=== PATIENT | female | born 2000 | race Asian ===

== ENCOUNTER 2018-05-31 02:06 | Emergency (ER) | payer OTHER ==
[2018-05-31 02:45] LABS: ABS Basophils 0 10^3/ul (0-0.2); ABS Eosinophils 0 10^3/ul (0-0.6); ABS Lymphocytes 2.3 10^3/ul (1.0-4.8); ABS Monocytes 0.3 10^3/ul (0-0.8); ABS Neutrophils 3.1 10^3/ul (1.5-7.7); ABS Nucleated RBC 0 10^3/ul; Eosinophil % 0.6 % (0-6); Hematocrit 40 % (35-47); Hemoglobin 13.8 g/dl (12.0-16.0); Mean Corpuscular HGB Conc 34 g/dl (31-36); Mean Corpuscular Hemoglobin 32 pg (27-31); Mean Corpuscular Volume 92 fL (80-97); Mean Platelet Volume 7.1 um3 (7.4-10.4); Nucleated Red Blood Cells % 0.1; Platelet Count 249 10^3/ul (150-450); Red Blood Count 4.36 10^6/ul (4.00-5.40); Red Cell Distribution Width 13 % (10.5-15); White Blood Count 5.7 10^3/ul (3.5-10.8)
--- NOTE | 2018-05-31 02:45 | ED ---
Laceration/Wound HPI - HPI Summary HPI Summary: 17 year old F BIB EMS to [facility] complains of laceration to the left cheek s/p falling down an entire flight of stairs at [employer] two hours ago. The patient rates the pain 4/10 in severity. Symptoms aggravated by nothing. Symptoms alleviated by nothing. Patient reports left cheek edema, left cheek ecchymosis. She additionally complains of lacerations on her right lower extremity. Patient denies abdominal pain. Nurse reports that patient has been feeling depressed about home situation with parents. She admits that she consumed ETOH tonight to cope with the depression, but denies purposely throwing herself down the stairs. - History of Current Complaint Stated Complaint: FALL/FACIAL INJURY Time Seen by Provider: 05/31/18 02:24 Hx Obtained From: Patient Onset/Duration: Other - falling down an entire flight of stairs at [employer] Aggravating: Nothing Alleviating: Nothing Current Severity: Moderate Pain Intensity: 4 Pain Scale Used: 0-10 Numeric - Allergy/Home Medications Allergies/Adverse Reactions: Allergies Allergy/AdvReac Type Severity Reaction Status Date / Time No Known Allergies Allergy Verified 05/31/18 08:16 Home Medications: Home Medications NK [No Home Medications Reported] 05/31/18 [History Confirmed 05/31/18] PMH/Surg Hx/FS Hx/Imm Hx Previously Healthy: No Endocrine/Hematology History: Denies: Hx Diabetes Cardiovascular History: Denies: Hx Hypertension Psychiatric History: Reports: Hx Depression Infectious Disease History: No Infectious Disease History: Denies: Traveled Outside the [place] in Last 30 Days - Family History Known Family History: Positive: Other - younger sister has had thoughts of suicide - Social History Alcohol Use: Occasionally Review of Systems Positive: Edema - left cheek Positive: Other - laceration to the left cheek,lacerations on her right lower extremity, left cheek ecchymosis Positive: Other - ETOH consumption All Other Systems Reviewed And Are Negative: Yes Physical Exam - Summary Physical Exam Summary: Appearance: Well-appearing, Well-nourished, lying in bed comfortably Skin: Contusions along the right [place]: Big swelling contusion on left cheek. No extraocular muscular entrapment. No injury to the globe. Eyes: sclera anicteric, no conjunctival pallor ENT: mucous membranes moist, pharynx appears normal Neck: Supple, nontender Respiratory: Clear to auscultation, no signs of respiratory distress Cardiovascular: Normal S1, S2. No murmurs. Normal distal pulses in tibial and radial bilaterally. Abdomen: Soft, nontender, normal active bowel sounds present Musculoskeletal: Normal, Strength/ROM Intact Neurological: A&Ox3, awake and alert, mentation is normal, speech is fluent and appropriate Psychiatric: affect is normal, does not appear anxious or depressed Triage Information Reviewed: Yes Vital Signs On Initial Exam: Initial Vitals Temp Pulse Resp BP Pulse Ox 98.4 F 93 15 118/80 97 05/31/18 02:19 05/31/18 02:19 05/31/18 02:19 05/31/18 02:19 05/31/18 02:19 Vital Signs Reviewed: Yes Diagnostics - Vital Signs Vital Signs Temp Pulse Resp BP Pulse Ox 05/31/18 02:19 98.4 F 93 15 118/80 97 - Laboratory Result Diagrams: 05/31/18 02:39 05/31/18 02:39 Lab Statement: Any lab studies that have been ordered have been reviewed, and results considered in the medical decision making process. - CT Maxillofacial CT Interpretation Completed By: Radiologist - No acute fracture or dislocation. Moderate left premaxillary soft tissue swelling. ED physician has reviewed this report. Laceration Repair Course/Dx - Course Course Of Treatment: 17-year-old woman who became intoxicated and supposedly fell down a flight of stairs, injuring her left cheek. CT scan maxillofacial is negative for any facial fracture. However she is quite depressed and will need a mental health evaluation once she is sober. - Clinical Impression Provider Diagnoses: Depression Discharge - Sign-Out/Discharge Documenting (check all that apply): Sign-Out Patient Signing out patient TO: Abdias Weathers - Awaiting MHE, pending dispo - Discharge Plan Condition: Stable Disposition: HOME Referrals: No Primary Care Phys,NOPCP [Primary Care Provider] - [facility] [Outside] - Billing Disposition and Condition Condition: STABLE Disposition: Home - Attestation Statements Document Initiated by Scribe: Yes Documenting Scribe: Rissa Harris Provider For Whom Scribe is Documenting (Include Credential): Barry Avalos MD Scribe Attestation: Rissa Garcia, scribed for Barry Avalos MD on 06/01/18 at 0217. Scribe Documentation Reviewed: Yes Provider Attestation: The documentation as recorded by the scribe, Rissa Harris accurately reflects the service I personally performed and the decisions made by me, Barry Avalos MD
[2018-05-31 03:02] LABS: EGFR Non-African American 96.6 (>60)
--- NOTE | 2018-05-31 04:39 | RAD ---
EXAM: CT Maxillofacial Without Intravenous Contrast CLINICAL HISTORY: 17 years old, female; Injury or trauma; Fall; Initial encounter; Blunt trauma (contusions or hematomas) and concussion /head injury and fracture, traumatic and swelling; Closed fracture; Not specified; Cheek bone; Left; Loss of consciousness not known; Injury date: ; Injury details: Fall down stairs/etoh; Additional info: Trauma, left cheek injury TECHNIQUE: Axial computed tomography images of the face without intravenous contrast. All CT scans at this facility use at least one of these dose optimization techniques: automated exposure control; mA and/or kV adjustment per patient size (includes targeted exams where dose is matched to clinical indication); or iterative reconstruction. Coronal and sagittal reformatted images were created and reviewed. COMPARISON: No relevant prior studies available. FINDINGS: Bones/joints: No acute fracture. Soft tissues: Moderate left premaxillary soft tissue swelling. Orbits: Unremarkable. Sinuses: Unremarkable. No air-fluid levels. IMPRESSION: No acute fracture or dislocation. Moderate left premaxillary soft tissue swelling.
--- NOTE | 2018-05-31 07:13 | ED ---
Progress - Progress Note Progress Note: This patient is signed out from Dr. Avalos awaiting mental health evaluation. Course/Dx - Course Course Of Treatment: 17-year-old woman who became intoxicated and supposedly fell down a flight of stairs, injuring her left cheek. CT scan maxillofacial is negative for any facial fracture. Patient is signed out from Dr. Avalos awaiting mental health evaluation. At 09:35, Dr. Townsend informed me of patient discharge. He states patient has no SI and will be reffered to mental health services on [facility]. - Diagnoses Provider Diagnoses: Depression Discharge - Sign-Out/Discharge Documenting (check all that apply): Patient Departure - discharge - Discharge Plan Condition: Stable Disposition: HOME Referrals: [facility] [Outside] No Primary Care Phys,NOPCP [Primary Care Provider] - - Attestation Statements Document Initiated by Scribe: Yes Documenting Scribe: Jeanie De Luna Provider For Whom Scribe is Documenting (Include Credential): Abdias Weathers Scribe Attestation: IJeanie, scribed for Abdias Weathers on 05/31/18 at 0941.
[2018-05-31 08:35] VITALS: BP 94/40
== END 2018-05-31 11:10 | disposition home or self-care (01) ==
LOC: ED 02:06
DX: F32.9 Major depressive disorder, single episode, unspecified (principal); S01.412A Laceration without foreign body of left cheek and temporomandibular area, initial encounter; S81.811A Laceration without foreign body, right lower leg, initial encounter; W10.9XXA Fall (on) (from) unspecified stairs and steps, initial encounter; Y93.89 Activity, other specified; Y92.099 Unspecified place in other non-institutional residence as the place of occurrence of the external cause
CPT/HCPCS: 36415; 70486; 80053; 80320; 80329; 84702; 85025; 99285; G0480

== ENCOUNTER 2019-11-08 21:44 | Emergency (ER) | payer OTHER, MEDICAID ==
[2019-11-08 21:58] VITALS: BP 119/67
[2019-11-08 22:02] LABS: Influenza B Molecular POSITIVE (Negative)
[2019-11-08] MEDS ORDERED: Oseltamivir CAP* 75 MG CAP PO ONE (22:07)
--- NOTE | 2019-11-08 22:07 | UC ---
Respiratory Complaint HPI - HPI Summary HPI Summary: She felt a little sick yesterday but began running a fever today. She has a little bit of a cough and sore throat and her ears hurt. She's been eating normally today. She took Tylenol at 8 PM approximately 2 hours ago. - History of Current Complaint Chief Complaint: UCRespiratory Stated Complaint: fever, and cough with SORE THROAT Time Seen by Provider: 11/08/19 21:49 Hx Obtained From: Patient Hx Last Menstrual Period: [id number] ?: No Onset/Duration: Gradual Onset Timing: Constant Severity Initially: Moderate Severity Currently: Moderate Pain Intensity: 0 Character: Cough: Nonproductive Aggravating Factors: Nothing Alleviating Factors: Nothing Associated Signs And Symptoms: Positive: Negative, Fever, Chills - Allergies/Home Medications Allergies/Adverse Reactions: Allergies Allergy/AdvReac Type Severity Reaction Status Date / Time No Known Allergies Allergy Verified 11/08/19 21:58 Home Medications: Home Medications Acetaminophen TAB* [Tylenol TAB*] 975 mg PO Q6H PRN 11/08/19 [History Confirmed 11/08/19] Ibuprofen TAB* [Advil TAB*] 200 mg PO Q6H PRN 11/08/19 [History Confirmed ] Norethindrone [Jahaira] 0.35 mg PO DAILY 11/08/19 [History Confirmed 11/08/19] PMH/Surg Hx/FS Hx/Imm Hx Previously Healthy: Yes - Surgical History Surgical History: None - Family History Known Family History: Positive: Other - younger sister has had thoughts of suicide - Social History Alcohol Use: Weekly Alcohol Amount: 3-5 Substance Use Type: None Smoking Status (MU): Never Smoked Tobacco Review of Systems All Other Systems Reviewed And Are Negative: Yes Constitutional: Positive: Fever, Chills Skin: Positive: Negative Eyes: Positive: Negative ENT: Positive: Sore Throat, Ear Ache Respiratory: Positive: Cough Cardiovascular: Positive: Negative Gastrointestinal: Positive: Negative Physical Exam - Summary Physical Exam Summary: She is nontoxic in appearance with stable vital signs aside from tachycardia Appearance: Well-Appearing Vital Signs: Initial Vital Signs Temp 98.9 F 11/08/19 21:50 Pulse 135 11/08/19 21:50 Resp 16 11/08/19 21:50 BP 119/67 11/08/19 21:50 Pulse Ox 96 11/08/19 21:50 Vital Signs Reviewed: Yes ENT Exam: Normal ENT: Positive: Pharynx normal, TMs normal Neck exam: Normal Neck: Positive: Supple, Nontender, No Lymphadenopathy Respiratory: Positive: Chest non-tender, Lungs clear, Normal breath sounds, No respiratory distress Cardiovascular Exam: Normal Abdomen Description: Positive: Nontender Neurological Exam: Normal Respiratory Course/Dx - Course Course Of Treatment: Her flu B is positive. On limited treated with Tamiflu. She is tachycardic and I don't think this represents any dangerous condition rather is just from the influenza. - Differential Dx/Diagnosis Provider Diagnosis: Influenza B Discharge ED - Sign-Out/Discharge Documenting (check all that apply): Patient Departure All imaging exams completed and their final reports reviewed: No Studies - Discharge Plan Condition: Stable Disposition: HOME Patient Education Materials: Influenza (ED) Referrals: No Primary Care Phys,NOPCP [Primary Care Provider] - Care [facility] [Outside] - Billing Disposition and Condition Condition: STABLE Disposition: Home
== END 2019-11-08 22:19 | disposition home or self-care (01) ==
LOC: UCEAST 21:44
DX: J10.1 Influenza due to other identified influenza virus with other respiratory manifestations (principal); H92.09 Otalgia, unspecified ear
CPT/HCPCS: 87651; 99212; A9270-GY; G0463